=== PATIENT | male | born 1965 | race Caucasian/White ===

== ENCOUNTER 2018-10-07 16:45 | Emergency (ER) | payer OTHER ==
[2018-10-07 16:58] VITALS: BP 119/80
[2018-10-07] MEDS ORDERED: Ibuprofen TAB* 600 MG PO ONE (17:13)
--- NOTE | 2018-10-07 17:18 | UC ---
Back Pain HPI - HPI Summary HPI Summary: 53-year-old male comes in with a chief complaint of low back pain. Yesterday while at work he was twisting and bending performing his duties and had sudden onset of pain in the low back. Pain is worse with twisting turning bending. No radiation of the pain down the legs or into the buttocks. No loss of control of urine or stool. No abdominal pain. Patient has not tried any over- the-counter medications. - History of Current Complaint Chief Complaint: UCBackPain Stated Complaint: BACK INJURY Time Seen by Provider: 10/07/18 17:00 Pain Intensity: 9 - Allergies/Home Medications Allergies/Adverse Reactions: Allergies Allergy/AdvReac Type Severity Reaction Status Date / Time No Known Allergies Allergy Verified 10/07/18 16:58 PMH/Surg Hx/FS Hx/Imm Hx Previously Healthy: Yes - Surgical History Surgical History: None - Family History Known Family History: Positive: Non-Contributory - Social History Alcohol Use: None Substance Use Type: None Smoking Status (MU): Never Smoked Tobacco Review of Systems All Other Systems Reviewed And Are Negative: Yes Constitutional: Positive: Negative Skin: Positive: Negative Eyes: Positive: Negative ENT: Positive: Negative Respiratory: Positive: Negative Cardiovascular: Positive: Negative Gastrointestinal: Positive: Negative Genitourinary: Positive: Negative Motor: Positive: Negative Neurovascular: Positive: Negative Musculoskeletal: Positive: Other: - SEE HPI Neurological: Positive: Negative Psychological: Positive: Negative Is Patient Immunocompromised?: No Physical Exam Triage Information Reviewed: Yes Appearance: Well-Appearing, Well-Nourished, Pain Distress - MILD WITH ROM Vital Signs: Initial Vital Signs Temp 97.4 F 10/07/18 16:54 Pulse 66 10/07/18 16:54 Resp 16 10/07/18 16:54 BP 119/80 10/07/18 16:54 Pulse Ox 99 10/07/18 16:54 Vital Signs Reviewed: Yes Eye Exam: Normal Eyes: Positive: Conjunctiva Clear Neck exam: Normal Neck: Positive: Supple, Nontender Respiratory: Positive: Lungs clear, Normal breath sounds, No respiratory distress Cardiovascular: Positive: RRR Abdomen Description: Positive: Nontender, Soft Musculoskeletal: Positive: Other: - Tender to palpation mid lower lumbar spine. No tenderness in the sciatic distribution into the buttocks. Feet ankles knees and hips have full range of motion full-strength no sensation deficits. Neurological Exam: Normal Neurological: Positive: Alert, Muscle Tone Normal Psychological Exam: Normal Psychological: Positive: Normal Response To Family, Age Appropriate Behavior Skin Exam: Normal Back Pain Course/Dx - Differential Dx/Diagnosis Provider Diagnosis: Low back pain Discharge - Sign-Out/Discharge Documenting (check all that apply): Patient Departure All imaging exams completed and their final reports reviewed: No Studies - Discharge Plan Condition: Stable Disposition: HOME Prescriptions: Cyclobenzaprine TAB* [Flexeril 10 MG TAB*] 10 mg PO TID PRN #15 tab MDD 3 PRN Reason: Pain Ibuprofen TAB* [Motrin TAB* 600 MG] 600 mg PO Q6H PRN #30 tab PRN Reason: Pain Forms: *Work Release Referrals: Alexis Chilel MD [Primary Care Provider] - Star Roger MD [Medical Doctor] - Additional Instructions: FOLLOW UP WITH YOUR PRIMARY CARE DOCTOR, DR CHILEL, OR OCCUPATIONAL MEDICINE, DR ROGER, IF NOT COMPLETELY IMPROVED. TAKE IBUPROFEN 600MG EVERY 6 HOURS NEEDED. TAKE THE FLEXERIL DIRECTED NEEDED. THE FLEXERIL MAY MAKE YOU SLEEPY SO, DO NOT DRIVE. YOU CAN BUY OVER THE COUNTER LIDODERM PATCHES; USE THESE DIRECTED IF HELPFUL. GET RECHECKED FOR ANY WORSENING OF YOUR CONDITION; WEAKNESS, NUMBNESS, DIFFICULTY CONTROLLING BOWEL OR BLADDER OR QUESTIONS OR CONCERNS. - Billing Disposition and Condition Condition: STABLE Disposition: Home
== END 2018-10-07 17:25 | disposition home or self-care (01) ==
LOC: UCEAST 16:45
DX: M54.5 Low back pain (principal)
CPT/HCPCS: 99212; A9270-GY; G0463